=== PATIENT | male | born 1970 | race American Indian/Alaskan Native ===

== ENCOUNTER 2019-10-26 07:49 | Day surgery (SDC) | payer OTHER ==
[2019-10-26] MEDS ORDERED: ASPIRIN EC 325 MG TAB PO ONE (08:14)
[2019-10-26] MEDS ORDERED: HEPARIN/NS 5000 UNIT/500ML 1,000 ML IR ONE (08:21)
[2019-10-26] MEDS ORDERED: HEPARIN 10,000 UNITS/10 ML VIAL ONE (08:21)
[2019-10-26] MEDS ORDERED: MIDAZOLAM 2 MG/2 ML INJ ONE (08:21)
[2019-10-26] MEDS ORDERED: fentaNYL 100 MCG/2 ML INJ ONE (08:21)
[2019-10-26] MEDS ORDERED: LIDOCAINE (2%) 20 MG/1 ML VIAL 20 ML MDV INFILTRATI ONE (08:22)
[2019-10-26] MEDS ORDERED: VERAPAMIL 5 MG/2 ML INJ ONE (08:22)
[2019-10-26] MEDS: SODIUM CHLORIDE 0.9% 500 ML 500 ML IV SCH ×2 (09:08→09:40)
--- NOTE | 2019-10-26 10:46 | Cardiac Catherization Report ---
INDICATION FOR PROCEDURE: The patient is a 49-year-old -[place] gentleman with history of hypertension and probable underlying dilated cardiomyopathy and obstructive sleep apnea, is scheduled for cardiac catheterization to rule out underlying coronary artery disease. The patient is being treated for dilated cardiomyopathy with ongoing leg swelling and venous insufficiency. The patient is aware of the procedure, potential complications and alternatives of therapy available. DESCRIPTION OF PROCEDURE: The patient was brought to the catheterization laboratory in a fasting condition. The patient was evaluated for moderate sedation and was felt to be appropriate candidate for moderate sedation and received IV Versed and fentanyl. Subsequently, the patient was prepared in standard fashion. Local anesthesia was given in the right wrist area. Right radial artery access was obtained using 21-gauge arterial puncture needle. Subsequently, 5-Welsh slender sheath was introduced. A 5-Welsh multipurpose catheter was used to obtain the left ventriculogram done in RIOS projection using power injector and also right coronary angiograms were obtained in multiple views. A 5-Welsh TIG catheter was used to obtain the angiograms of the left coronary artery. At the end of the procedure, catheter and sheath were removed and good hemostasis was achieved. The patient was monitored throughout the procedure using pulse oximetry, EKG monitoring and hemodynamic monitoring. Also to be noted, the patient received 3000 units of intravenous heparin and 5 mg of intra-arterial verapamil after obtaining the radial artery access. Following findings were noted. HEMODYNAMICS: 1. Opening aortic pressure 157/83, left ventricular pressure 156/33. No gradient across the aortic valve. Estimated ejection fraction 35-40%. 2. Left ventriculogram done in RIOS projection shows left ventricular size to be upper limits of normal with mild diffuse hypokinesis, ejection fraction approximately 35-40%. Difficult to evaluate for mitral regurgitation. 3. Right coronary artery dominant vessel arises normally from right coronary cusp, angiographically smooth and normal. 4. Left coronary artery arises normally from left coronary cusp. Left main, LAD and its branches and circumflex branch are angiographically smooth and normal. FINAL IMPRESSION: 1. Mild LV dysfunction, [id number] LV dysfunction, ejection fraction in the range of 35-40%. 2. Normal coronary anatomy. Diastolic dysfunction with elevated end diastolic pressure. The patient will be continued on his medical therapy for dilated cardiomyopathy. Continue risk factor modification. The patient tolerated the procedure well. The patient's sedation started at 9:32 a.m. and monitoring ended at 10:05 a.m. At the end of the procedure, the patient is breathing normally, communicating normally and no focal deficits noted. The patient was transferred to the room in stable condition. Findings were explained to the patient. No untoward complications were noted. JOB# [id number] ELLIS/PAULINO
--- NOTE | 2019-10-26 11:05 | Short Stay Summary ---
Short Stay Documentation Date of service: 10/26/19 - History H&P: obtained from office - Allergies and Medications Current Medications: Allergies No Known Allergies Allergy (Verified 10/26/19 08:14) Home Medications Medication Instructions Recorded Confirmed Last Taken Type AtorvaSTATin [Lipitor] 20 mg PO QHS 10/26/19 10/26/19 10/25/19 History 1 tab Bumetanide 2 mg PO BID 10/26/19 10/26/19 10/25/19 18:00 History 1 tab Sacubitril/Valsartan [Entresto 49 - 51 mg PO BID 10/26/19 10/26/19 10/25/19 History 49-51 mg] 1 tab Spironolactone [Aldactone] 25 mg PO DAILY 10/26/19 10/26/19 10/25/19 History 1 tab carvediloL [Coreg] 25 mg PO BID 10/26/19 10/26/19 10/25/19 18:00 History 1 tab Active Medications Sodium Chloride (Nacl 0.9% 500 Ml) 500 mls @ 50 mls/hr IV DIRECT NADER Stop: 10/26/19 18:59 Last Admin: 10/26/19 09:40 Dose: 50 mls/hr Documented by: - Brief post op/procedure progress note Date of procedure: 10/26/19 Pre-op diagnosis: CMP Post-op diagnosis: other (NICMP) Procedure: C - see dictated cath report Anesthesia: local Estimated blood loss: none Condition: stable - Disposition Condition at discharge: Good Disposition: [id number]-01 TO HOME OR SELFCARE - Discharge Diagnoses (1) NICM (nonischemic cardiomyopathy) Status: Chronic (2) LUIS (obstructive sleep apnea) Status: Chronic Short Stay Discharge Plan Activity: advance as tolerated Wound: open to air, keep clean and dry, per your surgeon's advice Follow up with: PRIMARY CARE, [Primary Care Provider] - 7 Days
[2019-10-26 14:11] VITALS: BP 142/80
== END 2019-10-26 14:00 | disposition home or self-care (01) ==
LOC: CATHLABREC 07:49
PROVIDERS: ATTEND Internal Medicine
DX: I42.0 Dilated cardiomyopathy (principal); I10 Essential (primary) hypertension; G47.33 Obstructive sleep apnea (adult) (pediatric); I11.0 Hypertensive heart disease with heart failure; I50.9 Heart failure, unspecified; I73.9 Peripheral vascular disease, unspecified; E78.00 Pure hypercholesterolemia, unspecified; Z79.899 Other long term (current) drug therapy
CPT/HCPCS: 93005; 93458; 99156; 99157; C1887; C1894; J1644; J2250; J3010; J7040; Q9967

== ENCOUNTER 2021-01-31 14:31 | Emergency (ER) | payer OTHER ==
[2021-01-31] MEDS ORDERED: HYDROcodone/ACETAMINOPHEN 5-325 MG TAB PO ONE (18:18)
--- NOTE | 2021-01-31 18:21 | Emergency Department Report ---
ED Extremity Problem HPI - General Chief complaint: Extremity Injury, Lower Stated complaint: RT SIDE LEG PAIN Time Seen by Provider: 01/31/21 16:40 Source: patient Mode of arrival: Ambulatory Limitations: No Limitations - History of Present Illness Initial comments: Patient is a 50-year-old male presents emergency room with complaints of chronic right knee pain. Patient states approximately 2 weeks ago he had a arthrocentesis by his orthopedic doctor and they advised him that his fluid evaluation from his knee was normal. He states he also received a cortisone injection approximately 5 weeks ago. States his orthopedics sent him to a specialist for further evaluation of his knee. He states he has continued to have pain in his right knee after he had the arthrocentesis. He denies any drainage, fever, redness, swelling, numbness, weakness. Patient states that he has pain with ambulation. Patient went to another emergency room 2 days ago and was given a steroid shot and a shot for pain and given a prescription for Tylenol with codeine. He denies any allergies to medications. Severity scale (0 -10): 10 - Related Data Home Medications Medication Instructions Recorded Confirmed Last Taken AtorvaSTATin [Lipitor] 20 mg PO QHS 10/26/19 10/26/19 10/25/19 1 tab Bumetanide 2 mg PO BID 10/26/19 10/26/19 10/25/19 18:00 1 tab Sacubitril/Valsartan [Entresto 49 - 51 mg PO BID 10/26/19 10/26/19 10/25/19 49-51 mg] 1 tab Spironolactone [Aldactone] 25 mg PO DAILY 10/26/19 10/26/19 10/25/19 1 tab carvediloL [Coreg] 25 mg PO BID 10/26/19 10/26/19 10/25/19 18:00 1 tab Allergies Allergy/AdvReac Type Severity Reaction Status Date / Time No Known Allergies Allergy Verified 01/31/21 16:19 ED Review of Systems ROS: Stated complaint: RT SIDE LEG PAIN Other details as noted in HPI Comment: All other systems reviewed and negative ED Past Medical Hx - Past Medical History Hx Hypertension: Yes Hx Congestive Heart Failure: Yes - Social History Smoking Status: Never Smoker - Medications Home Medications: Home Medications Medication Instructions Recorded Confirmed Last Taken Type AtorvaSTATin [Lipitor] 20 mg PO QHS 10/26/19 10/26/19 10/25/19 History 1 tab Bumetanide 2 mg PO BID 10/26/19 10/26/19 10/25/19 18:00 History 1 tab Sacubitril/Valsartan [Entresto 49 - 51 mg PO BID 10/26/19 10/26/19 10/25/19 History 49-51 mg] 1 tab Spironolactone [Aldactone] 25 mg PO DAILY 10/26/19 10/26/19 10/25/19 History 1 tab carvediloL [Coreg] 25 mg PO BID 10/26/19 10/26/19 10/25/19 18:00 History 1 tab ED Physical Exam - General Limitations: No Limitations General appearance: alert, in no apparent distress - Head Head exam: Present: atraumatic, normocephalic - Eye Eye exam: Present: normal appearance - ENT ENT exam: Present: mucous membranes moist - Extremities Exam Extremities exam: Present: other (mild ttp to the right lateral knee, no erythema, no significant edema, no skin changes, pt is able to flex the right knee greater than 90 degrees, neurovascularly intact, no calf ttp) - Neurological Exam Neurological exam: Present: alert, oriented X3 - Psychiatric Psychiatric exam: Present: normal affect, normal mood - Skin Skin exam: Present: warm, dry, intact ED Course Vital Signs 01/31/21 01/31/21 16:15 18:35 Temperature 98.7 F Pulse Rate 79 68 Respiratory 20 14 Rate Blood Pressure 177/104 136/81 [Left] O2 Sat by Pulse 199 H 98 Oximetry ED Medical Decision Making - Medical Decision Making Patient is a 50-year-old male presents emergency room with complaints of chronic right knee pain. Patient states approximately 2 weeks ago he had a arthrocentesis by his orthopedic doctor and they advised him that his fluid evaluation from his knee was normal. He states he also received a cortisone injection approximately 5 weeks ago. States his orthopedics sent him to a specialist for further evaluation of his knee. He states he has continued to have pain in his right knee after he had the arthrocentesis. He denies any drainage, fever, redness, swelling, numbness, weakness. Patient states that he has pain with ambulation. Patient went to another emergency room 2 days ago and was given a steroid shot and a shot for pain and given a prescription for Tylenol with codeine. He denies any allergies to medications. on exam: mild ttp to the right lateral knee, no erythema, no significant edema, no skin changes, pt is able to flex the right knee greater than 90 degrees, neurovascularly intact, no calf ttp. No signs of septic joint or cellulitis. No signs of significant knee effusion. Patient is having no calf tenderness, no swelling down the leg. He is neurovascularly intact. Patient given pain medication in the emergency department as he states that someone is driving him home. Discussed the importance of outpatient primary care and orthopedic follow-up. Advised patient May alternate Tylenol or ibuprofen as needed for any discomfort. May ice for 15 minutes at a time, rest, elevate the leg. Follow-up with orthopedic doctor. Follow-up with a primary care doctor. Return to emergency room for any new or worsening symptoms. Critical care attestation.: If time is entered above; I have spent that time in minutes in the direct care of this critically ill patient, excluding procedure time. ED Disposition Clinical Impression: Right knee pain Qualifiers: Chronicity: chronic Qualified Code(s): M25.561 - Pain in right knee Disposition: 01 HOME / SELF CARE / HOMELESS Is pt being admited?: No Does the pt Need Aspirin: No Condition: Stable Instructions: Chronic Knee Pain, Adult Additional Instructions: May alternate Tylenol or ibuprofen as needed for any discomfort. May ice for 15 minutes at a time, rest, elevate the leg. Follow-up with orthopedic doctor. Follow-up with a primary care doctor. Return to emergency room for any new or worsening symptoms. Referrals: your, orthopedic doctor [Other] - 3-5 Days your, primary care doctor [Other] - 3-5 Days Time of Disposition: 18:20 Print Language: AZERI
[2021-01-31 18:36] VITALS: BP 136/81
[2021-01-31] MEDS ORDERED: SODIUM CHLORIDE 0.9% 1000 ML 1,000 ML ONE (20:55)
[2021-01-31] MEDS ORDERED: LORazepam 2 MG/ML VIAL ONE (20:59)
== END 2021-01-31 18:42 | disposition home or self-care (01) ==
LOC: ED 14:31
DX: G89.29 Other chronic pain (principal); M25.561 Pain in right knee; I10 Essential (primary) hypertension
CPT/HCPCS: 99282; J7030; J2060